=== PATIENT | male | born 1985 | race Caucasian/White ===

== ENCOUNTER 2016-05-09 17:16 | Emergency (ER) | payer OTHER ==
[~2016-05-09] VITALS: Ht 157.5 cm; Wt 78.0 kg
[2016-05-09 17:20] VITALS: Ht 157.5 cm; Wt 78.0 kg
[2016-05-09] MEDS ORDERED: ALPRAZOLAM 0.25 MG TAB PO ONE (17:30)
--- NOTE | 2016-05-09 18:24 | ERD ---
ER Documentation Chief Complaint Date/Time DATE: 05/09/16 TIME: 18:20 Chief Complaint anxitey attack after mom in [place] in ed1 HPI Patient is a 30-year-old male with lupus, hypertension, and anxiety who presents with feeling anxious. His mother is a patient and she is very sick in room 4. He said that he needed to do CPR on his mother and this made him very anxious. He usually takes more than 0.5 mg of Xanax at one time. He said that he last took Xanax yesterday. His primary doctor is Dr. El. ROS All systems reviewed and are negative except as per history of present illness. Allergies Allergies: Coded Allergies: Penicillins (Verified Allergy, 05/09/16) PMhx/Soc Medical and Surgical Hx: pt denies Medical Hx, pt denies Surgical Hx FmHx Family History: No diabetes Physical Exam Vitals Vital Signs Date Time Temp Pulse Resp B/P Pulse Ox O2 Delivery O2 Flow Rate FiO2 05/09/16 17:20 98.2 99 18 169/106 99 Physical Exam Const: Anxious Head: Atraumatic Eyes: Normal Conjunctiva ENT: Normal External Ears, Nose and Mouth. Neck: Full range of motion..~ No meningismus. Resp: Clear to auscultation bilaterally Cardio: Regular rate and rhythm, no murmurs Abd: Soft, non tender, non distended. Normal bowel sounds Skin: No petechiae or rashes Back: No midline or flank tenderness Ext: No cyanosis, or edema Neur: Awake and alert Psych: Anxious Results 24 hrs Current Medications Medications (Trade) Dose Ordered Sig/Timothy Route PRN Reason Start Time Stop Time Status Last Admin Dose Admin Alprazolam (Xanax) 1 mg ONCE ONCE PO 05/09/16 17:30 05/09/16 17:31 DC 05/09/16 17:37 Procedures/MDM Patient is a 30-year-old male who presents with appears to be a grief reaction over his mother. The patient will be given Ativan 1 mg by mouth. I do not believe the patient requires further workup or admission the hospital at this time. He will be discharged. He can follow-up with his primary doctor within 2 -3 days. Departure Diagnosis: Primary Impression: Anxiety attack Condition: Fair Patient Instructions: Anxiety Reaction Additional Instructions: Call your primary care doctor TOMORROW for an appointment during the next 1-2 days.See the doctor sooner or return here if your condition worsens before your appointment time. TREY NEGRETE MD May 09, 2016 18:23
== END 2016-05-09 17:51 | disposition home or self-care (01) ==
LOC: E/R 17:16
DX: F41.9 Anxiety disorder, unspecified (principal); I10 Essential (primary) hypertension
CPT/HCPCS: 99283

== ENCOUNTER 2016-05-13 07:35 | Emergency (ER) | payer OTHER ==
[~2016-05-13] VITALS: Wt 65.9 kg
[2016-05-13 07:50] VITALS: Wt 65.9 kg
--- NOTE | 2016-05-13 07:54 | ERD ---
ER Documentation Chief Complaint Date/Time DATE: 05/13/16 TIME: 07:52 Chief Complaint shakiness since yest, states syncopal episode yest HPI 30-year-old male brought to the emergency department as a code green response from the ICU. Patient was in the ICU visiting his mother who unfortunately is passing away. Incidentally, patient tells me that he lost his brother approximately 5 months ago. Patient has been having anxiety, tremulousness and has not been eating according to the ICU staff. Today he had the same ongoing complaints of feeling nervous. He was then brought to the emergency department for evaluation. He did not pass out or have any other complaints. ROS All systems reviewed and are negative except as per history of present illness. Allergies Allergies: Coded Allergies: Penicillins (Verified Allergy, Unknown, 05/09/16) FmHx Noncontributory for chief complaint Physical Exam Vitals Vital Signs Date Time Temp Pulse Resp B/P Pulse Ox O2 Delivery O2 Flow Rate FiO2 05/13/16 07:50 94.4 80 16 144/91 100 Physical Exam GENERAL: The patient is well developed and appropriate for usual state of health in no apparent distress HEENT: Pupils equal, round, and reactive to light. EOMI. There is no scleral icterus. NECK: C-spine is soft and supple, there is no meningismus. There is no cervical lymphadenopathy. LUNGS: Clear to auscultation bilaterally. There are no rales, wheezes or rhonchi. HEART: Regular rate and rhythm, no murmurs, clicks, rubs or gallops. ABDOMEN: Soft, non-tender, non-distended. There are bowel sounds in all four quadrants. No rebound or guarding. EXTREMITIES: There is no peripheral cyanosis or edema. No focal swelling or erythema. NEURO: The patient moves all four extremities with 5/5 strength. Cranial nerves II - XII are intact. Normal gait. Alert and oriented SKIN: There is no apparent rash or petechiae. HEME/LYMPHATIC: There is no evidence of excessive bruising or lymphedema. PSYCHIATRIC: Patient is anxious nervous but with normal insight and normal judgment. He is denying suicidal or homicidal thoughts. Procedures/MDM Patient was taken to a room, seen and examined Medical decision making: This is a 30-year-old male presents to the emergency department for evaluation of anxiety relating to the medical situation regarding his mother. At this time, patient has no significant risk factors for any significant high risk psychiatric symptoms and/or significant high-risk cardiopulmonary issues. He is neurologically normal, hemodynamic is stable and seems appropriate for outpatient care. He will be brought back to the ICU where I have requested the ICU staff to have social work assistant to speak with the patient for possible supportive efforts. Departure Diagnosis: Primary Impression: Anxiety Condition: Stable Patient Instructions: Anxiety Reaction Additional Instructions: Please speak to your doctor this week. Speak with the social work assistant people GREGORY DOE May 13, 2016 07:54
[2016-05-13 08:10] VITALS: BP 136/79; PULSE 85; RESP 16
== END 2016-05-13 08:20 | disposition home or self-care (01) ==
LOC: E/R 07:35
DX: F41.9 Anxiety disorder, unspecified (principal); I10 Essential (primary) hypertension
CPT/HCPCS: 99282